=== PATIENT | male | born 1990 | race Hispanic/Latino ===

== ENCOUNTER 2020-07-18 06:54 | Emergency (ER) | payer OTHER ==
[~2020-07-18] VITALS: Ht 188 cm; Wt 86.4 kg
[2020-07-18 06:57] VITALS: BP 148/81
== END 2020-07-18 07:39 | disposition home or self-care (01) ==
LOC: M ED 06:54
DX: L73.9 Follicular disorder, unspecified (principal)

== ENCOUNTER → 2023-02-22 | Outpatient (CLI) | payer OTHER ==
[~2023-02-22] MED LIST: ISOVUE-300 61% 100ML VIAL As Ordered ONE; LIDOCAINE 1% MDV 20ML VIAL As Ordered ONE; PROHANCE 279.3MG/ML 5ML VIAL As Ordered ONE
== END ==
LOC: M RAD 06:28
PROVIDERS: ATTEND Nurse Practitioner Family
DX: M25.612 Stiffness of left shoulder, not elsewhere classified (principal); R53.1 Weakness
CPT/HCPCS: 23350; 73223; 77002; A9576; Q9967